=== PATIENT | male | born 1960 | race Caucasian/White ===

== ENCOUNTER 2020-12-17 11:37 | Emergency (ER) | payer OTHER ==
[~2020-12-17] VITALS: Ht 172.7 cm; Wt 98.0 kg
[~2020-12-17 11:37] MED LIST: ASCO100018 PO; ASPI-963; CHOL10002 PO; DABI150C PO; DRON400T6 PO; HYDR-2214 PO; IBUP-1223 PO; LEVO150T8 PO; LOSA25TA25 PO; METO-93 PO; OMEG500C3 PO; SIMV80TA PO; SOTA120T26 PO; VITA1CAP PO
--- NOTE | 2020-12-17 11:56 | NUR ---
PT BROUGHT BACK TO ROOM FROM TRIAGE. PT STATES THAT HE HAS BEEN FEELING HIS HEART RACE FOR ABOUT THE PAST 20 HOURS. HR 150. PT DENIES ANY DIZZINESS/LIGHT HEADEDNESS. PT STATED THAT HE HAD AN ABLATION IN THE PAST FOR THE SAME THING AND THIS IS THE FIRST TIME HE HAS GONE BACK INTO THIS RHYTHM SINCE THE ABLATION. PT ALERT AND ORIENTED, BP 149/101.
--- NOTE | 2020-12-17 12:12 | NUR ---
PT CONVERTED BACK TO SR ON OWN. FREQUEST PAC'S AND PVC'S NOTED.
[2020-12-17 12:30] LABS: BASOPHILS % (AUTO) 1 % (0-1); EOSINOPHILS % (AUTO) 0 % (1-7); LYMPHOCYTES % (AUTO) 16 % (22-44); MEAN CORPUSCULAR HEMOGLOBIN 33.6 pg (27.5-34.5); MEAN CORPUSCULAR HGB CONC 35.1 g/dL (33.2-36.2); MEAN PLATELET VOLUME 10.4 fL (7.4-10.4); MONOCYTES % (AUTO) 7 % (2-9); NEUTROPHILS % (AUTO) 77 % (42-75); PLATELET COUNT 240 x10^3/uL (130-400); RED BLOOD COUNT 5.55 x10^6/uL (4.38-5.82)
[2020-12-17] MEDS ORDERED: METOPROLOL 1 MG/ML, 5ML IVPush ONE (12:30)
[2020-12-17] MEDS ORDERED: SODIUM CHLORIDE FLUSH 10ML SYR IVF ONE (12:30)
[2020-12-17] MEDS ORDERED: DILTIAZEM 5 MG/ML, 5ML IV ONE (12:30)
[2020-12-17] MEDS ORDERED: APIXABAN 5 MG TABLET PO ONE (12:30)
[2020-12-17] MEDS ORDERED: PROPOFOL 10 MG/ML, 20ML IVPush ONE (12:30)
[2020-12-17 12:33] LABS: MD NO
[2020-12-17] MEDS ORDERED: APIXABAN 5 MG TABLET ONE (12:33)
[2020-12-17] MEDS ORDERED: METOPROLOL 1 MG/ML, 5ML ONE (12:33)
[2020-12-17 12:37] LABS: ALBUMIN 4.2 g/dL (3.4-5.0); ANION GAP 6 mmol/L (5-15); CALCIUM 9.4 mg/dL (8.5-10.1); CHLORIDE 110 mmol/L (98-107); CREATININE 0.98 mg/dL (0.7-1.3)
[2020-12-17 12:47] LABS: TROPONIN I < 0.015 ng/mL (0.000-0.045)
[2020-12-17 13:09] VITALS: BP 145/92
--- NOTE | 2020-12-17 13:19 | NUR ---
DISCHARGE INSTRUCTIONS REVIEWED WITH PT AND SPOUSE. ALL QUESTIONS ANSWERED AT THIS TIME.
== END 2020-12-17 13:21 | disposition home or self-care (01) ==
LOC: ED 13:15
DX: I48.92 Unspecified atrial flutter (principal); R00.2 Palpitations; R07.89 Other chest pain; I10 Essential (primary) hypertension; I48.91 Unspecified atrial fibrillation; I25.10 Atherosclerotic heart disease of native coronary artery without angina pectoris; E78.00 Pure hypercholesterolemia, unspecified; E03.9 Hypothyroidism, unspecified; F17.200 Nicotine dependence, unspecified, uncomplicated
CPT/HCPCS: 36415; 80048; 82040; 83735; 84443; 84484; 85025; 93005; 96374; 99284